=== PATIENT | female | born 1965 | race Caucasian/White ===

== ENCOUNTER 2018-04-10 07:30 | Emergency (ER) | payer OTHER | END 2018-04-10 07:57 | disposition home or self-care (01) | LOC: FTE 07:30 | DX: H60.91 Unspecified otitis externa, right ear (principal); E11.65 Type 2 diabetes mellitus with hyperglycemia; Z79.4 Long term (current) use of insulin | CPT/HCPCS: 99282; Z7502 ==

== ENCOUNTER 2018-06-12 17:52 | Emergency (ER) | payer OTHER ==
[2018-06-12] MEDS: DIPHTH/TET/ACEL PERTUSS (ADULT) 0.5 ML VIAL IM* (21:15)
== END 2018-06-12 21:23 | disposition home or self-care (01) ==
LOC: FTE 17:52
DX: S61.432A Puncture wound without foreign body of left hand, initial encounter (principal); E11.9 Type 2 diabetes mellitus without complications; W26.0XXA Contact with knife, initial encounter; Y92.9 Unspecified place or not applicable; Z23 Encounter for immunization; Z79.4 Long term (current) use of insulin
CPT/HCPCS: 73130; 73130-LT; 90471; 90715; 99283-25

== ENCOUNTER 2018-09-12 07:13 | Day surgery (SDC) | payer OTHER ==
[2018-09-12] MEDS ORDERED: PROPOFOL 40 ML (08:33)
[2018-09-12] MEDS ORDERED: DEXTROSE 50% 50 ML SYRINGE (08:33)
[2018-09-12] MEDS ORDERED: FENTAnyl 50 MCG/ML VIAL IV ×2 (09:00)
[2018-09-12] MEDS ORDERED: LABETALOL HCL 20MG INJ IV (09:00)
[2018-09-12] MEDS ORDERED: METOCLOPRAMIDE 10 MG INJ IV (09:00)
[2018-09-12] MEDS ORDERED: EPHEDrine 25 MG/5 ML SYG IV (09:00)
[2018-09-12] MEDS ORDERED: ONDANSETRON 4 MG INJ IV (09:00)
[2018-09-12] MEDS ORDERED: HYDROmorphONE 1 MG/5 ML IV SYRINGE IV ×2 (09:00)
== END 2018-09-12 10:43 | disposition home or self-care (01) ==
LOC: GIL 07:13
DX: Z12.11 Encounter for screening for malignant neoplasm of colon (principal); K64.8 Other hemorrhoids; K29.60 Other gastritis without bleeding; E11.9 Type 2 diabetes mellitus without complications; E78.5 Hyperlipidemia, unspecified; Z79.4 Long term (current) use of insulin
CPT/HCPCS: 43239; 82962; 88305